=== PATIENT | male | born 1970 | race Caucasian/White ===

== ENCOUNTER 2023-05-16 21:22 | Inpatient (IN) ==
--- NOTE | 2023-05-16 21:58 | Emergency Department Note ---
Impression & Plan SBO (small bowel obstruction), Vomiting, Acute dehydration, Crohn's disease ED Provider Note NAME: PATRICE MCKEE AGE: 52 SEX: M : 1970 ARRIVES VIA: Walk-In INFORMANT: Patient, the patient's significant other ED PROVIDER(S): Andrew Penny DO CHIEF COMPLAINT: Abdominal pain HPI: The patient is a 52-year-old male who presented to the emergency department for an evaluation of abdominal pain. The patient has a history of liver transplant. He had a history of primary sclerosing cholangitis as well as Crohn's disease. The patient started having problems with abdominal pain nausea vomiting which worsened over the course the last 48 hours. He has been trying to take Zofran without relief of his symptoms. The patient denies having any fever. He denies having any chest pain. He did have some leg swelling and was seen at another ER and was diagnosed with superficial thrombophlebitis. The patient denies having any recent trauma. He denies having any rectal bleeding. ROS: See above HPI for pertinent positives & negatives. A total of 10 systems reviewed and were otherwise negative. PAST MEDICAL HISTORY: See Below PAST SURGICAL HISTORY: See Below FAMILY HISTORY: See Below SOCIAL HISTORY: See Below HOME MEDICATIONS: See Below ALLERGIES: See Below VITALS: See Below PHYSICAL EXAMINATION: GENERAL: The patient is awake and alert. He is very anxious and appears to be unwell. EYES: The conjunctivae are clear. The pupils are round and reactive. EARS, NOSE, MOUTH AND THROAT: The nose is without any evidence of any deformity. Mucous membranes are dry. NECK: The neck is nontender and supple. RESPIRATORY: Normal respiratory effort is noted there is no evidence of wheezing rhonchi or rales CARDIOVASCULAR: Regular rate and rhythm noted there no murmurs rubs or gallops normal S1 normal S2. GASTROINTESTINAL: The abdomen is distended. There is diffuse tenderness and guarding in all quadrants. MUSCULOSKELETAL/EXTREMITIES: There is no evidence of gross deformity full range of motion is noted in the hips and shoulders. SKIN: There is no significant pedal edema. Skin was cool and dry. NEUROLOGIC: Patient is awake alert and oriented x3 MEDICAL DECISION MAKING: The patient is a 52-year-old male who presented to the emergency department for an evaluation of abdominal pain. The patient was experiencing abdominal pain nausea and vomiting. His history and physical exam are very worrisome for an underlying intra-abdominal process. For this reason further laboratory and radiographic studies were obtained. I discussed patient's laboratory and radiographic studies with him. He was treated with IV fluids and IV pain medication in the emergency department. He was also treated with IV antiemetics. On reevaluation he was significantly improved. His CT does appear to be consistent with a small bowel obstruction. He was not in need of an NG tube on my final reevaluation. He was found to have signs of significant dehydration. His hemoglobin was very high which I think was secondary to dehydration. I did review the patient's previous LFTs and today his labs appear to be very close to baseline although his bilirubin is slightly elevated compared to his baseline. [facility] to evaluate the patient in the emergency department for further management and disposition. Triage Nursing notes reviewed. Prior medical records reviewed Vital Signs: reviewed and remarkable for tachycardia. Differential diagnosis: Etiologies such as appendicitis, diverticulitis, obstruction, inflammatory bowel disease, renal colic, PUD, biliary pathology, pancreatitis, mesenteric ischemia, aortic pathology, infections, genitourinary, UTI, perforated viscus, as well as others were entertained. ER treatment provided: See below Diagnostics interpreted by me: ECG: none Cardiac Monitoring: An order was placed for continuous cardiac monitoring. The monitor shows a rate of 113 bpm with sinus tachycardia. Laboratory studies: As stated above and show below. Imaging studies: See below. Radiographic imaging was reviewed by myself Consultation(s): I discussed this case with Dr. [facility]illo [facility]. Past [facility]/Surg History Medical History (Updated 05/17/23 @ 01:11 by Andrew Penny DO) Primary sclerosing cholangitis Hodgkins lymphoma Crohn disease Surgical History Liver transplant recipient Social History Smoking Status: Former smoker Preferred Language: Hebrew Feels Safe at Home: Yes Allergies Allergies Allergy/AdvReac Type Severity Reaction Status Date / Time ibuprofen Allergy Intermediate Hives Verified 05/16/23 23:23 Home Meds Home Medications Medication Instructions Recorded Confirmed azathioprine 50 mg tablet 100 mg PO QPM 05/16/23 05/16/23 tacrolimus 1 mg capsule, 2 mg PO Q12H 05/16/23 05/16/23 immediate-release Results & Data (ED) Vital Signs Vital Signs - 24 hr 05/16/23 21:34 05/16/23 21:49 05/16/23 21:49 Temperature 36.7 C Temperature Source Temporal Artery Scan Pulse Rate 122 H 128 H 128 H Pulse Rate [Apical] Pulse Rate from SpO2 Sensor 127 H Pulse Rhythm Pulse Rhythm [Apical] Pulse Strength [Apical] Respiratory Rate 17 47 H Respiratory Effort / Characteristics Respiratory Depth Respiratory Pattern Blood Pressure 141/95 H Blood Pressure [Left Arm] Blood Pressure Mean 110 Blood Pressure Mean [Left Arm] Pulse Oximetry 95 98 Oxygen Delivery Method Room Air Oxygen Flow Rate Sepsis Recent Fever Within 48 Hours No Sepsis New/Unexplained Change in Mental Status No Sepsis Action Taken by Nursing No Action Required 05/16/23 21:50 05/16/23 21:58 05/16/23 22:00 Temperature Temperature Source Pulse Rate 119 H 105 H Pulse Rate [Apical] 117 H Pulse Rate from SpO2 Sensor 119 H 108 H Pulse Rhythm Pulse Rhythm [Apical] Regular Pulse Strength [Apical] Normal Respiratory Rate 50 H 25 H 30 H Respiratory Effort / Characteristics Short of Breath Respiratory Depth Normal Respiratory Pattern Tachypnea Blood Pressure Blood Pressure [Left Arm] 135/79 Blood Pressure Mean Blood Pressure Mean [Left Arm] 97 Pulse Oximetry 97 94 94 Oxygen Delivery Method Room Air Oxygen Flow Rate Sepsis Recent Fever Within 48 Hours Sepsis New/Unexplained Change in Mental Status Sepsis Action Taken by Nursing 05/16/23 22:00 05/16/23 22:02 05/16/23 22:10 Temperature Temperature Source Pulse Rate 117 H 112 H Pulse Rate [Apical] Pulse Rate from SpO2 Sensor 111 H Pulse Rhythm Regular Pulse Rhythm [Apical] Pulse Strength [Apical] Respiratory Rate 36 H 45 H Respiratory Effort / Characteristics Respiratory Depth Respiratory Pattern Blood Pressure 135/79 Blood Pressure [Left Arm] Blood Pressure Mean 87 Blood Pressure Mean [Left Arm] Pulse Oximetry 97 98 Oxygen Delivery Method Room Air Oxygen Flow Rate Sepsis Recent Fever Within 48 Hours Sepsis New/Unexplained Change in Mental Status Sepsis Action Taken by Nursing 05/16/23 22:15 05/16/23 22:15 05/16/23 22:18 Temperature Temperature Source Pulse Rate 104 H 90 Pulse Rate [Apical] Pulse Rate from SpO2 Sensor 102 H Pulse Rhythm Regular Pulse Rhythm [Apical] Pulse Strength [Apical] Respiratory Rate 25 H 16 Respiratory Effort / Characteristics Respiratory Depth Respiratory Pattern Blood Pressure 129/85 Blood Pressure [Left Arm] Blood Pressure Mean 97 Blood Pressure Mean [Left Arm] Pulse Oximetry 86 L 85 L Oxygen Delivery Method Room Air Oxygen Flow Rate Sepsis Recent Fever Within 48 Hours Sepsis New/Unexplained Change in Mental Status Sepsis Action Taken by Nursing 05/16/23 22:20 05/16/23 22:32 05/16/23 22:32 Temperature Temperature Source Pulse Rate 97 H Pulse Rate [Apical] Pulse Rate from SpO2 Sensor 105 H Pulse Rhythm Regular Pulse Rhythm [Apical] Pulse Strength [Apical] Respiratory Rate 18 Respiratory Effort / Characteristics Respiratory Depth Respiratory Pattern Blood Pressure 134/85 Blood Pressure [Left Arm] Blood Pressure Mean 94 Blood Pressure Mean [Left Arm] Pulse Oximetry 98 98 Oxygen Delivery Method Nasal Cannula Oxygen Flow Rate 2 Sepsis Recent Fever Within 48 Hours Sepsis New/Unexplained Change in Mental Status Sepsis Action Taken by Nursing 05/16/23 22:40 05/16/23 22:45 05/16/23 22:45 Temperature Temperature Source Pulse Rate 101 H 98 H Pulse Rate [Apical] Pulse Rate from SpO2 Sensor 101 H 99 H Pulse Rhythm Pulse Rhythm [Apical] Pulse Strength [Apical] Respiratory Rate 19 18 Respiratory Effort / Characteristics Respiratory Depth Respiratory Pattern Blood Pressure 121/79 Blood Pressure [Left Arm] Blood Pressure Mean 88 Blood Pressure Mean [Left Arm] Pulse Oximetry 98 98 Oxygen Delivery Method Oxygen Flow Rate Sepsis Recent Fever Within 48 Hours Sepsis New/Unexplained Change in Mental Status Sepsis Action Taken by Nursing 05/16/23 22:50 05/16/23 23:45 05/17/23 00:00 Temperature Temperature Source Pulse Rate 101 H 103 H 106 H Pulse Rate [Apical] Pulse Rate from SpO2 Sensor 102 H 101 H 104 H Pulse Rhythm Pulse Rhythm [Apical] Pulse Strength [Apical] Respiratory Rate 19 21 Respiratory Effort / Characteristics Respiratory Depth Respiratory Pattern Blood Pressure 137/86 133/82 Blood Pressure [Left Arm] Blood Pressure Mean 103 99 Blood Pressure Mean [Left Arm] Pulse Oximetry 98 96 94 Oxygen Delivery Method Room Air Room Air Oxygen Flow Rate Sepsis Recent Fever Within 48 Hours Sepsis New/Unexplained Change in Mental Status Sepsis Action Taken by Nursing 05/17/23 00:30 Temperature Temperature Source Pulse Rate 113 H Pulse Rate [Apical] Pulse Rate from SpO2 Sensor 113 H Pulse Rhythm Pulse Rhythm [Apical] Pulse Strength [Apical] Respiratory Rate 24 Respiratory Effort / Characteristics Respiratory Depth Respiratory Pattern Blood Pressure 115/78 Blood Pressure [Left Arm] Blood Pressure Mean 90 Blood Pressure Mean [Left Arm] Pulse Oximetry 95 Oxygen Delivery Method Room Air Oxygen Flow Rate Sepsis Recent Fever Within 48 Hours Sepsis New/Unexplained Change in Mental Status Sepsis Action Taken by [facility] Medications Current Medication List: was personally reviewed by me Laboratory Data Attestation: I reviewed the patient's lab results. 05/16/23 21:47 05/16/23 21:47 Lab Results 05/16/23 05/16/23 Range/Units 21:47 22:11 WBC 17.20 H (4.8-10.8) K/ul RBC 5.84 (4.70-6.10) M/uL Hgb 18.7 H (14.0-18.0) g/dl POC Hgb 18.4 H (14.0-18.0) g/dl Hct 55.0 H (42.0-52.0) % POC Hct 54 H (42-52) % MCV 94.2 (80.0-100.0) fL MCH 32.0 (25.0-34.0) pg MCHC 34.0 (32.0-36.0) g/dL RDW Std Deviation 48.4 H (36.4-46.3) fL RDW Coeff of [place] 14.0 (11.5-14.5) % Plt Count 297 (130-400) K/uL MPV 9.3 L (9.4-12.4) fL Immature Gran % (Auto) 0.5 % Neut % (Auto) 87.7 % Lymph % (Auto) 1.6 % [place] % (Auto) 9.9 % Eos % (Auto) 0.0 % Baso % (Auto) 0.3 % Neut # (Auto) 15.09 H (1.40-6.50) K/uL Lymph # (Auto) 0.27 L (1.20-3.40) K/uL [place] # (Auto) 1.71 H (0.11-0.59) K/uL Eos # (Auto) 0.00 (0.00-0.50) K/uL Baso # (Auto) 0.05 (0.00-0.20) K/uL Immature Gran # (Auto) 0.08 (0.01-0.20) K/uL PT 11.9 (9.0-12.0) Seconds INR 1.1 (0.9-1.1) APTT 23 (21-31) Seconds PTT Ratio 0.8 POC Sodium 139 (135-144) mmol/L Sodium 139 (136-145) mmol/L POC Potassium 3.9 (3.3-5.0) mmol/L Potassium 3.9 (3.5-5.1) mmol/L POC Chloride 105 (101-112) mmol/L Chloride 103 (98-107) mmol/L Carbon Dioxide 20 L (21-32) mmol/L POC Total CO2 24 (24-31) mmol/L Anion Gap 16 H (3-11) POC Anion Gap 16.0 (16-25) mmol/L POC BUN 30 H (7-18) mg/dl BUN 28 H (6-23) mg/dl Creatinine 0.81 (0.6-1.4) mg/dl POC Creatinine 0.8 (0.6-1.3) mg/dl Est Cr Clr Drug Dosing 100.9 ml/min Est GFR ( Amer) 119.3 ml/min Est GFR (Non-Af Amer) 102.9 ml/min BUN/Creatinine Ratio 34.6 H (10-20) Glucose 183 H (70-99(Fasting)) mg/dl POC Glucose (other) 181 H (70-99) mg/dl Calcium 9.6 (8.6-10.3) mg/dl POC Ioniz Calcium Mikki 1.13 (1.12-1.32) mmol/l Total Bilirubin 2.2 H (0.2-1.0) mg/dl Direct Bilirubin 0.5 H (0-0.2) mg/dl AST 41 H (13-39) U/L ALT 53 H (7-52) U/L Alkaline Phosphatase 273 H (34-104) U/L Total Protein 7.5 (6.0-8.3) gm/dl Albumin 4.4 (3.4-5.0) gm/dl Globulin 3.1 (2.5-4.0) gm/dl Albumin/Globulin Ratio 1.4 (0.9-2) Lipase 13 (11-82) U/L Administered Medications Sodium Chloride (Nss) 1,000 mls @ 999 mls/hr IV .Q1H1M ONE Stop: 05/17/23 01:28 Last Admin: 05/17/23 00:33 Dose: 999 mls/hr Documented By: Morphine Sulfate (Morphine Sulfate 4 Mg/Ml 1 Ml Carp\Vial) 4 mg IV Q15M PRN PRN Reason: Pain Stop: 05/30/23 21:54 Last Admin: 05/16/23 23:42 Dose: 4 mg Documented By: Admin: 05/16/23 22:06 Dose: 4 mg Documented By: JAVIER Discontinued Medications Sodium Chloride (Nss) 1,000 mls @ 999 mls/hr IV .Q1H1M STA Stop: 05/16/23 22:55 Last Infusion: 05/16/23 23:11 Dose: Infused Documented By: Admin: 05/16/23 22:06 Dose: 999 mls/hr Documented By: JAVIER Ioversol (Optiray 320 100ml) 91 ml IV ONCE ONE Stop: 05/16/23 22:26 Last Admin: 05/16/23 22:26 Dose: 91 ml Documented By: CHELSI Ondansetron HCl (Ondansetron Inj 2 Mg/Ml 2 Ml Vial) 4 mg IV NOW STA Stop: 05/16/23 21:56 Last Admin: 05/16/23 22:06 Dose: 4 mg Documented By: JAVIER Imaging Data Attestation: I personally reviewed and interpreted this imaging study as follows: My Impression: CT of the abdomen and pelvis was obtained in the emergency department. My interpretation is dilated loops of small bowel, abnormality was noted to the texture of the liver, final report below. Radiologist's Impression: Abdomen/Pelvis CT 05/16/23 21:56 Exam(s): CT ABDOMEN + PELVIS With Contrast IV Amt: 91ML EXAM: CT Abdomen and Pelvis With Intravenous Contrast CLINICAL HISTORY: Reason for exam: pain. TECHNIQUE: Axial computed tomography images of the abdomen and pelvis with intravenous contrast. CTDI is 12.17 mGy and DLP is 674.61 mGy-cm. Automated exposure control was utilized for the study. A dose lowering technique was utilized adhering to the principles of ALARA. CONTRAST: Patient received 91ML of IV contrast COMPARISON: No relevant prior studies available. FINDINGS: Lung bases: Unremarkable. No mass. No consolidation. ABDOMEN: Liver: Multiple hepatic metastasis. Correlate for primary malignancy. Gallbladder and bile ducts: Cholecystectomy. No ductal dilation. Pancreas: Unremarkable. No mass. No ductal dilation. Spleen: Unremarkable. No splenomegaly. Adrenals: Unremarkable. No mass. Kidneys and ureters: Unremarkable. No hydronephrosis or delayed nephrogram. Stomach and bowel: Dilated small bowel measuring up to 3.2 cm, consistent with small bowel obstruction. Severe wall thickening of the terminal ileum, extending to the cecum. This is likely the point of obstruction. Mild wall thickening of the descending colon, correlate for colitis. PELVIS: Appendix: No findings to suggest acute appendicitis. Bladder: Unremarkable. No mass. Reproductive: Hysterectomy. ABDOMEN and PELVIS: Intraperitoneal space: Unremarkable. No free air. No significant fluid collection. Bones/joints: No acute fracture. No dislocation. Soft tissues: Unremarkable. Vasculature: Unremarkable. No abdominal aortic aneurysm. Lymph nodes: Unremarkable. No enlarged lymph nodes. IMPRESSION: 1. Multiple hepatic metastasis. Correlate for primary malignancy. 2. Dilated small bowel measuring up to 3.2 cm, consistent with small bowel obstruction. Severe wall thickening of the terminal ileum, extending to the cecum. This is likely the point of obstruction. Surgical evaluation recommended. Underlying colonic mass cannot be excluded. 3. Mild wall thickening of the descending colon, correlate for colitis. 4. Cholecystectomy. Electronically signed by: Janes Ramos MD 05/16/23 23:49 PM Discharge Plan Visit Data Chief Complaint: GI Assessment Stated Complaint: ABDOMINAL PAIN, VOMITING, DEHYDRATION ED Provider: Andrew Penny Discharge Problem: SBO (small bowel obstruction), Vomiting, Acute dehydration, Crohn's disease Patient Disposition: Being Evaluated by Hospitalist Forms Stand Alone Forms: [facility] Prescriptions Prescriptions: No Action azathioprine 50 mg Tablet 100 mg PO QPM tacrolimus 1 mg Capsule 2 mg PO Q12H Referrals Referrals: PCP,NO [Primary Care Provider] - Discharge Problem: Vomiting Qualifiers: Vomiting type: unspecified Nausea presence: with nausea Qualified Code(s): R 11.2 - Nausea with vomiting, unspecified Crohn's disease Qualifiers: Gastrointestinal tract location: unspecified location Digestive disease complication type: unspecified complication Qualified Code(s): K50.919 - Crohn's disease, unspecified, with unspecified complications
[2023-05-16] MEDS: ONDANSETRON INJ 2 MG/ML 2 ML VIAL IV STA (22:06)
[2023-05-16] MEDS: MoRPHine SULFATE 4 MG/ML 1 ML CARP\\VIAL IV PRN (22:06)
[2023-05-16] MEDS: SODIUM CHLORIDE 0.9% 1,000 ML IV STA (22:06)
[2023-05-16 22:12] LABS: Basophils # (auto) 0.05 K/uL (0.00-0.20); Basophils % (auto) 0.3 %; Hemoglobin 18.7 g/dl (14.0-18.0); Immature Granulocytes # (auto) 0.08 K/uL (0.01-0.20); Immature Granulocytes % (auto) 0.5 %; Lymphocytes # (auto) 0.27 K/uL (1.20-3.40); Lymphocytes % (auto) 1.6 %; Mean Corpuscular Volume 94.2 fL (80.0-100.0); Mean Platelet Volume 9.3 fL (9.4-12.4); Monocytes # (auto) 1.71 K/uL (0.11-0.59); Monocytes % (auto) 9.9 %; Neutrophils # (auto) 15.09 K/uL (1.40-6.50); Neutrophils % (auto) 87.7 %; Platelet Count 297 K/uL (130-400); RDW Standard Deviation 48.4 fL (36.4-46.3); Red Blood Count 5.84 M/uL (4.70-6.10)
[2023-05-16 22:25] LABS: iSTAT Creatinine 0.8 mg/dl (0.6-1.3); iSTAT Hemoglobin 18.4 g/dl (14.0-18.0); iSTAT Ionized Calcium 1.13 mmol/l (1.12-1.32); iSTAT Potassium 3.9 mmol/L (3.3-5.0)
[2023-05-16] MEDS: OPTIRAY 320 100ml IV ONE (22:26)
[2023-05-16 22:29] LABS: Albumin Globulin Ratio 1.4 (0.9-2); Albumin Level 4.4 gm/dl (3.4-5.0); BUN Creatinine Ratio 34.6 (10-20); Bilirubin Direct 0.5 mg/dl (0-0.2); Bilirubin,Total 2.2 mg/dl (0.2-1.0); Calcium 9.6 mg/dl (8.6-10.3); Creatinine Clr Calc Pharmacy 100.9 ml/min; Est GFR (African American) 119.3 ml/min; Est GFR (Non-African American) 102.9 ml/min; Globulin 3.1 gm/dl (2.5-4.0); Potassium 3.9 mmol/L (3.5-5.1); Total Protein 7.5 gm/dl (6.0-8.3)
[2023-05-16 22:45] LABS: INR 1.1 (0.9-1.1); Partial Thromboplastin Ratio 0.8; Partial Thromboplastin Time 23 Seconds (21-31); Prothrombin Time 11.9 Seconds (9.0-12.0)
--- NOTE | 2023-05-16 23:50 | CT Scan Report ---
Exam(s): CT ABDOMEN + PELVIS With Contrast IV Amt: 91ML EXAM: CT Abdomen and Pelvis With Intravenous Contrast CLINICAL HISTORY: Reason for exam: pain. TECHNIQUE: Axial computed tomography images of the abdomen and pelvis with intravenous contrast. CTDI is 12.17 mGy and DLP is 674.61 mGy-cm. Automated exposure control was utilized for the study. A dose lowering technique was utilized adhering to the principles of ALARA. CONTRAST: Patient received 91ML of IV contrast COMPARISON: No relevant prior studies available. FINDINGS: Lung bases: Unremarkable. No mass. No consolidation. ABDOMEN: Liver: Multiple hepatic metastasis. Correlate for primary malignancy. Gallbladder and bile ducts: Cholecystectomy. No ductal dilation. Pancreas: Unremarkable. No mass. No ductal dilation. Spleen: Unremarkable. No splenomegaly. Adrenals: Unremarkable. No mass. Kidneys and ureters: Unremarkable. No hydronephrosis or delayed nephrogram. Stomach and bowel: Dilated small bowel measuring up to 3.2 cm, consistent with small bowel obstruction. Severe wall thickening of the terminal ileum, extending to the cecum. This is likely the point of obstruction. Mild wall thickening of the descending colon, correlate for colitis. PELVIS: Appendix: No findings to suggest acute appendicitis. Bladder: Unremarkable. No mass. Reproductive: Hysterectomy. ABDOMEN and PELVIS: Intraperitoneal space: Unremarkable. No free air. No significant fluid collection. Bones/joints: No acute fracture. No dislocation. Soft tissues: Unremarkable. Vasculature: Unremarkable. No abdominal aortic aneurysm. Lymph nodes: Unremarkable. No enlarged lymph nodes. IMPRESSION: 1. Multiple hepatic metastasis. Correlate for primary malignancy. 2. Dilated small bowel measuring up to 3.2 cm, consistent with small bowel obstruction. Severe wall thickening of the terminal ileum, extending to the cecum. This is likely the point of obstruction. Surgical evaluation recommended. Underlying colonic mass cannot be excluded. 3. Mild wall thickening of the descending colon, correlate for colitis. 4. Cholecystectomy. Electronically signed by: Janes Ramos MD 05/16/23 23:49 PM
[2023-05-17] MEDS: SODIUM CHLORIDE 0.9% 1,000 ML IV ONE (00:33)
--- NOTE | 2023-05-17 01:56 | History & Physical Report ---
Date of Service May 17, 2023 Assessment & Plan (1) SBO (small bowel obstruction): (2) Vomiting: (3) Ulcerative colitis: (4) Acute dehydration: (5) Superficial thrombophlebitis of both legs: (6) Liver transplant recipient: Plan Small bowel obstruction/PSC/UC/liver transplant status/question of metastatic liver disease- CT scan suggestive of small bowel obstruction NPO Discussed possible need for NG tube No history of SBO Status post 2 L normal saline bolus NSS + KCl 20 mill equivalents at 100 mL/h Patient did take 1 oxycodone pill since he had discomfort, but no other narcotic use Pantoprazole 40 mg IV daily Consult gastroenterology, holding off on steroids for now Zosyn 4.5 g IV every 8 hours Liver transplant status/abnormal LFTs/history of Hodgkin's/question liver mets- Continue azathioprine and tacrolimus tomorrow, Wednesday morning, but has not had dosages since Wednesday due to nausea and vomiting CT with concerns regarding possible liver metastatic disease, which would be a new finding per his significant other Significant other tells me that he did have serial colonoscopies, which initially showed low-grade dysplasia but the most recent one showed high-grade dysplasia Patient has been resistant to a colectomy, which had been recommended at the [facility] Will consult heme-onc for their opinion Will consult gastroenterology for their opinion History of DVT status post liver transplant in 2016/history of PE in 2019 with COVID-19/recent diagnosis of superficial thrombophlebitis bilateral lower extremities Reports he was on anticoagulation for 6 months, but does not know what it was He was told to take ibuprofen by ED and DC, however, he does not like to take it due to his underlying medical conditions No history of hypercoagulable workup Heparin 5000 subcu every 8 hours Will have heme-onc consult to help determine necessity for hyper coag workup Potential underlying cancer may also be a factor and his recent development of thrombophlebitis, and associated with lengthy car travel History of Present Illness Chief Complaint: The patient presents to the emergency department due to nausea and vomiting worsening over the past 2 days Primary Care Provider: NO PCP The patient presents to the emergency department with a past medical history including ulcerative colitis, liver transplant status on immunosuppressive's, history of DVT and PE, high-grade dysplasia of colon, primary sclerosing cholangitis, Hodgkin's lymphoma, history of PE with COVID-19, history of DVT post liver transplant, recent diagnosis of superficial thrombophlebitis in the left saphenous vein and right calf. Patient lives in [place], where he recently traveled to [place] where his significant other if and keep children live. He and his significant other had gone to [facility] recently, and he developed painful legs, and nausea and vomiting. He went to a emergency department in [place], and was found to have superficial thrombophlebitis in left saphenous and right calf veins. He was told to take Motrin, which he is not allowed to due to his medical conditions. He also had developed nausea and vomiting, which worsened over the next 2 days, and caused him to present to the ED at [facility] for assessment. Allergies Allergy/AdvReac Type Severity Reaction Status Date / Time ibuprofen Allergy Intermediate Hives Verified 05/16/23 23:23 Home Medications Medication Instructions Recorded Confirmed Type azathioprine 50 mg tablet 100 mg PO QPM 05/16/23 05/16/23 History tacrolimus 1 mg capsule, 2 mg PO Q12H 05/16/23 05/16/23 History immediate-release Past Med/Surg History Medical History (Updated 05/17/23 @ 03:08 by Charan Stein MD) Superficial thrombophlebitis of both legs History of pulmonary embolism History of DVT (deep vein thrombosis) Ulcerative colitis Primary sclerosing cholangitis Hodgkins lymphoma Surgical History (Updated 05/17/23 @ 03:17 by Charan Stein MD) Liver transplant recipient Social History Smoking Status: Former smoker Preferred Language: Korean Feels Safe at Home: Yes Review of Systems Review of Systems: The patient denies chest pain, palpitations, cough, lower extremity swelling, sore throat, fevers, chills, sweats, blood in urine or stool, dysuria, urinary frequency or urgency, lightheadedness, dizziness, headache, memory loss, loss of consciousness, rash, abnormal bruising or bleeding, imbalance, focal or generalized weakness, numbness or tingling in arms or legs, generalized arthralgias or myalgias, back or neck pain, or night sweats. The review of systems is otherwise negative other than for that already noted above, and at least 10 systems have been reviewed. Physical Exam Physical Exam: The patient is awake, alert and oriented 3, well developed and well nourished, normocephalic and atraumatic, lying in bed and in no acute distress. HEENT--PERRL, EOMI, mucous membranes and oropharynx mildly dry. Neck--supple. No JVD. No bruits. Thyroid normal, trachea midline, no adenopathy. Heart--normal S1 and S2. No murmurs, rubs or gallops. Lungs--clear bilaterally, no respiratory distress, no accessory muscle use. Abdomen--decreased bowel sounds. Mildly distended. Nontender Extremities--no cyanosis or clubbing. No edema. Dermatologic--normal skin turgor, normal color, no abnormal lymph nodes, no rash. Neurologic--cranial nerves II through XII grossly intact. Rheumatologic--normal range of motion. Psychiatric--normal affect. Results & Data Results & Data Vital Signs (Past 12 Hours) Vital Signs Temp Pulse Pulse Resp BP BP Pulse Ox 05/17/23 00:30 113 H 24 115/78 95 05/17/23 00:00 106 H 133/82 94 05/16/23 23:45 103 H 21 137/86 96 05/16/23 22:50 101 H 19 98 05/16/23 22:45 121/79 05/16/23 22:45 98 H 18 98 05/16/23 22:40 101 H 19 98 05/16/23 22:32 134/85 05/16/23 22:32 98 05/16/23 22:20 97 H 18 98 05/16/23 22:18 90 16 85 L 05/16/23 22:15 104 H 25 H 86 L 05/16/23 22:15 129/85 05/16/23 22:10 112 H 45 H 98 05/16/23 22:02 117 H 36 H 97 05/16/23 22:00 135/79 05/16/23 22:00 105 H 30 H 94 05/16/23 21:58 117 H 25 H 135/79 94 05/16/23 21:50 119 H 50 H 97 05/16/23 21:49 128 H 47 H 98 05/16/23 21:49 128 H 05/16/23 21:34 36.7 C 122 H 17 141/95 H 95 O2 Del Method O2 Flow Rate 05/17/23 00:30 Room Air 05/17/23 00:00 Room Air 05/16/23 23:45 Room Air 05/16/23 22:50 05/16/23 22:45 05/16/23 22:45 05/16/23 22:40 05/16/23 22:32 05/16/23 22:32 05/16/23 22:20 Nasal Cannula 2 05/16/23 22:18 Room Air 05/16/23 22:15 05/16/23 22:15 05/16/23 22:10 05/16/23 22:02 Room Air 05/16/23 22:00 05/16/23 22:00 05/16/23 21:58 Room Air 05/16/23 21:50 05/16/23 21:49 05/16/23 21:49 05/16/23 21:34 Room Air Laboratory Results Laboratory Results WBC 17.20 K/ul (4.8-10.8) H 05/16/23 21:47 RBC 5.84 M/uL (4.70-6.10) 05/16/23 21:47 Hgb 18.7 g/dl (14.0-18.0) H 05/16/23 21:47 POC Hgb 18.4 g/dl (14.0-18.0) H 05/16/23 22:11 Hct 55.0 % (42.0-52.0) H 05/16/23 21:47 POC Hct 54 % (42-52) H 05/16/23 22:11 MCV 94.2 fL (80.0-100.0) 05/16/23 21:47 MCH 32.0 pg (25.0-34.0) 05/16/23 21:47 MCHC 34.0 g/dL (32.0-36.0) 05/16/23 21:47 RDW Std Deviation 48.4 fL (36.4-46.3) H 05/16/23 21:47 RDW Coeff of Luba 14.0 % (11.5-14.5) 05/16/23 21:47 Plt Count 297 K/uL (130-400) 05/16/23 21:47 MPV 9.3 fL (9.4-12.4) L 05/16/23 21:47 Immature Gran % (Auto) 0.5 % 05/16/23 21:47 Neut % (Auto) 87.7 % 05/16/23 21:47 Lymph % (Auto) 1.6 % 05/16/23 21:47 Mason % (Auto) 9.9 % 05/16/23 21:47 Eos % (Auto) 0.0 % 05/16/23 21:47 Baso % (Auto) 0.3 % 05/16/23 21:47 Neut # (Auto) 15.09 K/uL (1.40-6.50) H 05/16/23 21:47 Lymph # (Auto) 0.27 K/uL (1.20-3.40) L 05/16/23 21:47 Mason # (Auto) 1.71 K/uL (0.11-0.59) H 05/16/23 21:47 Eos # (Auto) 0.00 K/uL (0.00-0.50) 05/16/23 21:47 Baso # (Auto) 0.05 K/uL (0.00-0.20) 05/16/23 21:47 Immature Gran # (Auto) 0.08 K/uL (0.01-0.20) 05/16/23 21:47 PT 11.9 Seconds (9.0-12.0) 05/16/23 21:47 INR 1.1 (0.9-1.1) 05/16/23 21:47 APTT 23 Seconds (21-31) 05/16/23 21:47 PTT Ratio 0.8 05/16/23 21:47 POC Sodium 139 mmol/L (135-144) 05/16/23 22:11 Sodium 139 mmol/L (136-145) 05/16/23 21:47 POC Potassium 3.9 mmol/L (3.3-5.0) 05/16/23 22:11 Potassium 3.9 mmol/L (3.5-5.1) 05/16/23 21:47 POC Chloride 105 mmol/L (101-112) 05/16/23 22:11 Chloride 103 mmol/L (98-107) 05/16/23 21:47 Carbon Dioxide 20 mmol/L (21-32) L 05/16/23 21:47 POC Total CO2 24 mmol/L (24-31) 05/16/23 22:11 Anion Gap 16 (3-11) H 05/16/23 21:47 POC Anion Gap 16.0 mmol/L (16-25) 05/16/23 22:11 POC BUN 30 mg/dl (7-18) H 05/16/23 22:11 BUN 28 mg/dl (6-23) H 05/16/23 21:47 Creatinine 0.81 mg/dl (0.6-1.4) 05/16/23 21:47 POC Creatinine 0.8 mg/dl (0.6-1.3) 05/16/23 22:11 Est Cr Clr Drug Dosing 100.9 ml/min 05/16/23 21:47 Est GFR ( Amer) 119.3 ml/min 05/16/23 21:47 Est GFR (Non-Af Amer) 102.9 ml/min 05/16/23 21:47 BUN/Creatinine Ratio 34.6 (10-20) H 05/16/23 21:47 Glucose 183 mg/dl (70-99(Fasting)) H 05/16/23 21:47 POC Glucose (other) 181 mg/dl (70-99) H 05/16/23 22:11 Calcium 9.6 mg/dl (8.6-10.3) 05/16/23 21:47 POC Ioniz Calcium Mikki 1.13 mmol/l (1.12-1.32) 05/16/23 22:11 Total Bilirubin 2.2 mg/dl (0.2-1.0) H 05/16/23 21:47 Direct Bilirubin 0.5 mg/dl (0-0.2) H 05/16/23 21:47 AST 41 U/L (13-39) H 05/16/23 21:47 ALT 53 U/L (7-52) H 05/16/23 21:47 Alkaline Phosphatase 273 U/L (34-104) H 05/16/23 21:47 Total Protein 7.5 gm/dl (6.0-8.3) 05/16/23 21:47 Albumin 4.4 gm/dl (3.4-5.0) 05/16/23 21:47 Globulin 3.1 gm/dl (2.5-4.0) 05/16/23 21:47 Albumin/Globulin Ratio 1.4 (0.9-2) 05/16/23 21:47 Lipase 13 U/L (11-82) 05/16/23 21:47 Impressions Abdomen/Pelvis CT 05/16/23 21:56 Exam(s): CT ABDOMEN + PELVIS With Contrast IV Amt: 91ML EXAM: CT Abdomen and Pelvis With Intravenous Contrast CLINICAL HISTORY: Reason for exam: pain. TECHNIQUE: Axial computed tomography images of the abdomen and pelvis with intravenous contrast. CTDI is 12.17 mGy and DLP is 674.61 mGy-cm. Automated exposure control was utilized for the study. A dose lowering technique was utilized adhering to the principles of ALARA. CONTRAST: Patient received 91ML of IV contrast COMPARISON: No relevant prior studies available. FINDINGS: Lung bases: Unremarkable. No mass. No consolidation. ABDOMEN: Liver: Multiple hepatic metastasis. Correlate for primary malignancy. Gallbladder and bile ducts: Cholecystectomy. No ductal dilation. Pancreas: Unremarkable. No mass. No ductal dilation. Spleen: Unremarkable. No splenomegaly. Adrenals: Unremarkable. No mass. Kidneys and ureters: Unremarkable. No hydronephrosis or delayed nephrogram. Stomach and bowel: Dilated small bowel measuring up to 3.2 cm, consistent with small bowel obstruction. Severe wall thickening of the terminal ileum, extending to the cecum. This is likely the point of obstruction. Mild wall thickening of the descending colon, correlate for colitis. PELVIS: Appendix: No findings to suggest acute appendicitis. Bladder: Unremarkable. No mass. Reproductive: Hysterectomy. ABDOMEN and PELVIS: Intraperitoneal space: Unremarkable. No free air. No significant fluid collection. Bones/joints: No acute fracture. No dislocation. Soft tissues: Unremarkable. Vasculature: Unremarkable. No abdominal aortic aneurysm. Lymph nodes: Unremarkable. No enlarged lymph nodes. IMPRESSION: 1. Multiple hepatic metastasis. Correlate for primary malignancy. 2. Dilated small bowel measuring up to 3.2 cm, consistent with small bowel obstruction. Severe wall thickening of the terminal ileum, extending to the cecum. This is likely the point of obstruction. Surgical evaluation recommended. Underlying colonic mass cannot be excluded. 3. Mild wall thickening of the descending colon, correlate for colitis. 4. Cholecystectomy. Electronically signed by: Janes Ramos MD 05/16/23 23:49 PM Code Status & VTE Plan Code Status Full code VTE Prophylaxis Plan VTE Prophylaxis will be ordered: Yes PG Care Time/CCT Total # of Minutes Spent Total Time Spent with Patient: Total time spent is greater than 50% in coordination of care (as documented) at patient's floor/unit and/or counseling patient: Coding Level of Care Code 42967 INT INP/OBS CARE 375MIN Diagnoses SBO (small bowel obstruction) K56.609 Vomiting R11.2 Nausea presence: with nausea Vomiting type: unspecified Ulcerative colitis K51.90 Acute dehydration E86.0 Superficial thrombophlebitis of both legs I80.03 Liver transplant recipient Z94.4 (2) Vomiting Nausea presence: with nausea Vomiting type: unspecified Qualified Code(s): R11.2 - Nausea with vomiting, unspecified
[2023-05-17] MEDS: PANTOprazole 40 MG in SYRINGE 0 ML IV STA (02:29)
[2023-05-17] MEDS: NSS + 20MEQ KCL 20 MEQ/1,000 ML BAG IV SCH (02:32)
[2023-05-17] MEDS: PIPERACILLIN/TAZOBACTAM 4.5 GM/100 ML BAG IV STA (02:36)
[2023-05-17] MEDS: ONDANSETRON INJ 2 MG/ML 2 ML VIAL IV PRN (03:23)
[2023-05-17 03:55] LABS: Appearance Urine Clear (Clear); Bacteria Urine Automated Negative (Negative); Bilirubin Urine Negative (Negative); Blood Urine Negative (Negative); Color Urine Dark Yellow; Epithelial Cell Urine Auto 0-5 /lpf (0-5); Glucose Urine UA Negative (Negative); Ketones Urine 1+ (Negative); Leukocyte Esterase Urine Negative (Negative); Nitrite Urine Negative (Negative); Protein Urine Trace (Negative); Specific Gravity Urine > 1.045 (1.000-1.030); Urobilinogen Urine Negative (Negative)
[2023-05-17] MEDS: TACROLIMUS 1 MG CAP PO SCH (04:11)
[2023-05-17] MEDS: HEPARIN SOD 5,000 UNIT/0.5 ML VIAL SQ SCH (05:32)
[2023-05-17] MEDS ORDERED: HYDROmorphone INJ 0.5 MG/0.5 ML SYR IV PRN (05:41)
[2023-05-17] MEDS: MoRPHine SULFATE 4 MG/ML 1 ML CARP\\VIAL IV PRN (06:15)
--- NOTE | 2023-05-17 07:19 | Hospitalist Progress Note ---
Date of Service May 17, 2023 Assessment & Plan (1) SBO (small bowel obstruction): (2) Ulcerative colitis: (3) Superficial thrombophlebitis of both legs: (4) Liver transplant recipient: (5) Primary sclerosing cholangitis: (6) History of pulmonary embolism: (7) History of DVT (deep vein thrombosis): Plan Pt is a 52 yo male with a past medical history of ulcerative colitis, liver transplant status on immunosuppressive's, history of DVT and PE, high-grade dysplasia of colon, primary sclerosing cholangitis, Hodgkin's lymphoma, history of PE with COVID-19, history of DVT post liver transplant, recent diagnosis of superficial thrombophlebitis in the left saphenous vein and right calf who presents to the hospital on 05/15 for worsening nausea/vomiting over the last 2 days found to have an SBO. #Small bowel obstruction - CT scan suggestive of small bowel obstruction, no prior hx of SBO - NPO, NSS + KCl 20 mill equivalents at 100 mL/h - Discussed possible need for NG tube - continue Pantoprazole 40 mg IV daily - maybe due to underlying IBD vs mass - GI consulted; pending #Hx DVT s/p liver transplant in 2015 #Hx PE with COVID19 in 2019 #Current hx of superficial thrombophlebitis in b/l lower extremities, recent travel - previously on 6 mo of some sort of anticoagulant, no hypercoag workup done in the past - continue heparin - does have underlying cancer and recent travel as possible reasons for clots - will do b/l venous US; b/l DVT R>L - hematology consulted; pending #Fever in immunosuppressed pt - CT shows potential colitis process - on tacrolimus and azathioprine - pending GI recs - continue Zosyn 4.5 g IV every 8 hours, - blood cx; pending #Hx ulcerative colitis - pending GI recs #Liver metastases - noted on CT on admission - unclear where primary lesion is - would benefit from biopsy, but as pt is from [place] will defer this for now #S/p Liver transplant in 2015 #Primary sclerosing cholangitis - CT on admission shows possible liver mets, has hx of high grade dysplasia on previous colonoscopy - Patient has been resistant to a colectomy, which had been recommended at the [facility] - continue home azathioprine and tacrolimus - mild transaminitis noted - consult GI; pending DVT ppx; heparin in case of need for surg intervention IVF: LR 125 mL/hr since NPO Admission and Anticipated Discharge Date Admission Date: May 17, 2023 Supervising Physician Co-Signing Physician Notes I personally examined the patient and verified all burnett points of history and exam, discussed case, and agree with decision making with Dr Reveles no real changes. discussing follow up and if he will continue to have bulk of care in [place] or if he will want to set up a medical team locally - life is in both places more or less the same right now, but he was working towards moving most of life this direction vitals noted nad heent nc at mmm breathing unlabored no accessory muscles good effort skin no rashes no pallor or icterus neuro no focal deficits SBO - concern inflammatory or malignant. with fevers - continue zosyn. hold on steroids given not totally clear the obstruction is inflammatory mian w immunosuppression. colo would yield insight, understandably best done with his main team if f/u is to be back in [place]. similarly agree w liver bx but with no overt urgency - also likely best done where he will follow for continuity. otherwise as above Subjective Pt is a 52 yo male with a past medical history of ulcerative colitis, liver transplant status on immunosuppressive's, history of DVT and PE, high-grade dysplasia of colon, primary sclerosing cholangitis, Hodgkin's lymphoma, history of PE with COVID-19, history of DVT post liver transplant, recent diagnosis of superficial thrombophlebitis in the left saphenous vein and right calf who presents to the hospital on 05/15 for worsening nausea/vomiting over the last 2 days found to have an SBO. Today, pt is minimally conversational. He is awake and oriented but only responds to some questions and appears somewhat restless. Denies chest pain or SOB. Does note that he was having nausea and vomiting the last few days but does not elaborate anymore on his admitting history. Seen later this morning with his significant other who states they went to the ER in [place] because he had been having pain in both of his legs and with his hx of DVT/PE they were concerned given a lot of recent travel. He had nausea and vomiting starting after that which progressed and he had issues keeping anything down. 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 Review of Systems Review of Systems: Per HPI. Physical Exam Physical Exam: General:Alert and oriented, no acute distress but uncomfortable appearing HEENT: Normocephalic, moist oral mucosa, Cardio: Regular rate and rhythm, no murmur, Resp:Lungs clear to auscultation b/l, no wheezes or rhonchi, GI: Tense and distended, no bowel sounds appreciated Skin: Warm, pink, dry, Results & Data Results & Data Vital Signs (Past 12 Hours) Vital Signs Temp Pulse Pulse Resp BP BP Pulse Ox 05/17/23 07:18 37.9 C H 70 18 124/87 92 05/17/23 04:24 108 H 05/17/23 03:29 05/17/23 03:29 37.5 C 125 H 20 122/84 91 05/17/23 03:26 117 H 05/17/23 02:51 05/17/23 02:30 105 H 22 122/86 93 05/17/23 02:13 104 H 05/17/23 02:00 110 H 140/90 96 05/17/23 01:00 108 H 22 106/78 95 05/17/23 00:30 113 H 24 115/78 95 05/17/23 00:00 106 H 133/82 94 05/16/23 23:45 103 H 21 137/86 96 05/16/23 22:50 101 H 19 98 05/16/23 22:45 121/79 05/16/23 22:45 98 H 18 98 05/16/23 22:40 101 H 19 98 05/16/23 22:32 134/85 05/16/23 22:32 98 05/16/23 22:20 97 H 18 98 05/16/23 22:18 90 16 85 L 05/16/23 22:15 104 H 25 H 86 L 05/16/23 22:15 129/85 05/16/23 22:10 112 H 45 H 98 05/16/23 22:02 117 H 36 H 97 05/16/23 22:00 135/79 05/16/23 22:00 105 H 30 H 94 05/16/23 21:58 117 H 25 H 135/79 94 05/16/23 21:50 119 H 50 H 97 05/16/23 21:49 128 H 47 H 98 05/16/23 21:49 128 H 05/16/23 21:34 36.7 C 122 H 17 141/95 H 95 O2 Del Method O2 Flow Rate 05/17/23 07:18 Room Air 05/17/23 04:24 05/17/23 03:29 Room Air 05/17/23 03:29 Room Air 05/17/23 03:26 05/17/23 02:51 Room Air 05/17/23 02:30 Room Air 05/17/23 02:13 05/17/23 02:00 Room Air 05/17/23 01:00 Room Air 05/17/23 00:30 Room Air 05/17/23 00:00 Room Air 05/16/23 23:45 Room Air 05/16/23 22:50 05/16/23 22:45 05/16/23 22:45 05/16/23 22:40 05/16/23 22:32 05/16/23 22:32 05/16/23 22:20 Nasal Cannula 2 05/16/23 22:18 Room Air 05/16/23 22:15 05/16/23 22:15 05/16/23 22:10 05/16/23 22:02 Room Air 05/16/23 22:00 05/16/23 22:00 05/16/23 21:58 Room Air 05/16/23 21:50 05/16/23 21:49 05/16/23 21:49 05/16/23 21:34 Room Air Resident Activity Tracking Resident Involvement: Resident Care Provided Care Provided: Adult Hospital Medicine
[2023-05-17 07:22] LABS: Albumin Globulin Ratio 1.4 (0.9-2); Albumin Level 3.6 gm/dl (3.4-5.0); BUN Creatinine Ratio 36.8 (10-20); Bilirubin,Total 2.3 mg/dl (0.2-1.0); Calcium 8.3 mg/dl (8.6-10.3); Creatinine Clr Calc Pharmacy 107.5 ml/min; Est GFR (African American) 122.4 ml/min; Est GFR (Non-African American) 105.6 ml/min; Globulin 2.5 gm/dl (2.5-4.0); Potassium 4.1 mmol/L (3.5-5.1); Total Protein 6.1 gm/dl (6.0-8.3)
[2023-05-17] MEDS: PROMETHAZINE HCL 12.5 MG in SODIUM CHLORIDE 0.9% 50 ML IV PRN (07:48)
[2023-05-17 07:54] LABS: Hematocrit (blood only) 52.4 % (42.0-52.0); Hemoglobin 17.5 g/dl (14.0-18.0); Mean Corpuscular Hemoglobin 32.1 pg (25.0-34.0); Mean Corpuscular Hgb Conc 33.4 g/dL (32.0-36.0); Mean Platelet Volume 9.5 fL (9.4-12.4); Platelet Count 233 K/uL (130-400); RDW Coefficient of Variation 14.2 % (11.5-14.5); RDW Standard Deviation 49.9 fL (36.4-46.3); Red Blood Count 5.46 M/uL (4.70-6.10); White Blood Count 6.95 K/ul (4.8-10.8)
[2023-05-17 07:55] LABS: Basophils # (auto) 0.01 K/uL (0.00-0.20); Basophils % (auto) 0.1 %; Immature Granulocytes # (auto) 0.01 K/uL (0.01-0.20); Immature Granulocytes % (auto) 0.1 %; Lymphocytes # (auto) 0.12 K/uL (1.20-3.40); Lymphocytes % (auto) 1.7 %; Monocytes % (auto) 17.3 %; Neutrophils # (auto) 5.61 K/uL (1.40-6.50); Neutrophils % (auto) 80.8 %
[2023-05-17] MEDS: PIPERACILLIN/TAZOBACTAM 4.5 GM in DEXTROSE 5% MINI-B 100 ML IV SCH (08:09)
--- NOTE | 2023-05-17 09:40 | Ultrasound Report ---
BILATERAL LOWER EXTREMITY VENOUS DOPPLER HISTORY: History of DVT. phlebitis, cancer, r/o DVT COMPARISON STUDY: None. FINDINGS: The bilateral common femoral and superficial femoral veins are patent. Near occlusive throm bus seen within the right popliteal vein. There is also thrombus extending into a branch of the right popliteal vein which may represent the lesser saphenous. This measures 2.6 cm in length. There is th rombus seen within one of 2 right posterior tibial veins and in the right peroneal veins. The left po pliteal vein is patent. However, there is thrombus within a branch of the left popliteal vein which m ay represent the lesser saphenous vein. This is at the confluence of the popliteal vein and measures 3.8 cm in length. There is nonocclusive thrombus seen within the left peroneal veins. IMPRESSION: Bilateral lower extremity DVT as described above most pronounced on the right. ACT 112: Negative or not required by law. Electronically signed by: Wilder Devlin M.D. 05/17/2023 9:39 AM
[2023-05-17] MEDS: LACTATED RINGER'S 1,000 ML IV ONE ×2 (10:37→14:22)
[2023-05-17 11:26] LABS: INR 1.2 (0.9-1.1); Partial Thromboplastin Ratio 0.9; Partial Thromboplastin Time 24 Seconds (21-31); Prothrombin Time 13.3 Seconds (9.0-12.0)
--- NOTE | 2023-05-17 11:52 | Gastrointestinal Consultation ---
Date of Consultation May 17, 2023 Assessment & Plan (1) Ulcerative colitis: (2) Liver transplant recipient: (3) Primary sclerosing cholangitis: Plan Patient will need ongoing GI & hepatology care when he returns to [place] when acute SBO resolves. We discussed options of whether he wants to transfer care locally, but does strongly feel that due to his medical complexity, he should have the possible liver mets worked up when he returns to keep his care consistent. I agree but did let them know we would be happy to assist if they decide to transfer care. Continue supportive care for SBO. Supervising Physician Co-Signing Physician Notes Agree with YURIY Bryant as above Abd: Soft, NT, ND, +BS Continue current therapy and supportive care Patient follows with Transplant Hepatology in [place] Plan is to have liver biopsy in [place] and surgical followup due to insurance issues. History of Present Illness Reason for Consultation: liver transplant, PSC, UC, SBO, ? liver mets Attending Physician: Matthew Montalvo DO History of Present Illness Patient is a 52 yo male with PMH o f PSC s/p liver transplant in 2016, UC, and lymphoma. 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 He is admitted for a small bowel obstruction which is being managed conservatively at present. Abdominal pain improving and he notes having 2 loose bowel movements today. He has been on chronic Tacrolimus and Azathioprine due to his liver transplant in 2015. He notes he has not ever been on treatment for his UC. He had a colonoscopy in February 2023 that showed high grade dysplasia. Patient has been resistant to the idea of a colectomy, but notes it was recommended to him. A CT scan this admission noted concerned for hepatic mets. Allergies Allergy/AdvReac Type Severity Reaction Status Date / Time ibuprofen Allergy Intermediate Hives Verified 05/16/23 23:23 hydromorphone [From Dilaudid] AdvReac Confusion Verified 05/17/23 05:49 Home Medications Medication Instructions Recorded Confirmed Type azathioprine 50 mg tablet 100 mg PO QPM 05/16/23 05/16/23 History tacrolimus 1 mg capsule, 2 mg PO Q12H 05/16/23 05/16/23 History immediate-release Patient History Medical History Primary sclerosing cholangitis Superficial thrombophlebitis of both legs History of pulmonary embolism History of DVT (deep vein thrombosis) Ulcerative colitis Hodgkins lymphoma Surgical History Liver transplant recipient Social History Smoking Status: Never smoker Hx Alcohol Use: Yes Hx Substance Use: No Preferred Language: Bolivian Communication Ability: Effective Senior Tax Manager Required: No Beliefs That Will Affect Care: None Current Living Situation: Spouse Feels Safe at Home: Yes Assistive Devices: None Review of Systems Constitutional: no fever and no chills Respiratory: no cough Cardiovascular: no chest pain Gastrointestinal: + abdominal pain and + diarrhea/loose st ools Psychiatric: no problem reported Physical Exam Constitutional: well developed Respiratory: normal respiratory effort Cardiovascular: Rate/Rhythm: regular rate Gastrointestinal (Abdomen): Inspection/Auscultation: abdomen normal to inspection and + hypoactive bowel sounds Psychiatric: Orientation: alert and oriented x 3 Results & Data Vital Signs (Past 12 Hours) Vital Signs Temp Pulse Pulse Resp BP BP Pulse Ox 05/17/23 11:26 37.6 C H 137 H 18 122/79 95 05/17/23 07:24 110 H 05/17/23 07:18 37.9 C H 70 18 124/87 92 05/17/23 04:24 108 H 05/17/23 03:29 05/17/23 03:29 37.5 C 125 H 20 122/84 91 05/17/23 03:26 117 H 05/17/23 02:51 05/17/23 02:30 105 H 22 122/86 93 05/17/23 02:13 104 H 05/17/23 02:00 110 H 140/90 96 05/17/23 01:00 108 H 22 106/78 95 05/17/23 00:30 113 H 24 115/78 95 05/17/23 00:00 106 H 133/82 94 O2 Del Method 05/17/23 11:26 Room Air 05/17/23 07:24 05/17/23 07:18 Room Air 05/17/23 04:24 05/17/23 03:29 Room Air 05/17/23 03:29 Room Air 05/17/23 03:26 05/17/23 02:51 Room Air 05/17/23 02:30 Room Air 05/17/23 02:13 05/17/23 02:00 Room Air 05/17/23 01:00 Room Air 05/17/23 00:30 Room Air 05/17/23 00:00 Room Air PG Care Time/CCT Total # of Minutes Spent Total Time Spent with Patient: Total time spent is greater than 50% in coordination of care (as documented) at patient's floor/unit and/or counseling patient: Coding Level of Care Code 23784 IN/OBS CONSULT LVL 4,60M Diagnoses Ulcerative colitis K51.90 Liver transplant recipient Z94.4 Primary sclerosing cholangitis K83.01
[2023-05-17] MEDS: PANTOprazole 40 MG in SYRINGE 0 ML IV SCH (12:07)
[2023-05-17] MEDS: LACTATED RINGER'S 1,000 ML IV SCH (12:07)
[2023-05-17] MEDS: Heparin IV Adult Wt-Based Standard w/ INITIAL Bolus Protocol IV STA (12:59)
[2023-05-17] MEDS: HEPARIN SODIUM/DEXTROSE 25,000 UNITS/500 ML BAG IV SCH (13:00)
[2023-05-17] MEDS: HEPARIN SOD (PORCINE) 1000 UNIT/ML IV ONE (13:35)
--- NOTE | 2023-05-17 15:01 | Oncology Consultation ---
Date of Consultation May 17, 2023 Assessment & Plan (1) DVT (deep venous thrombosis): (2) SBO (small bowel obstruction): (3) Liver transplant recipient: Plan Very pleasant gentleman with history of lymphoma, recurrent provoked VTE, high- grade colonic dysplasia and PSC s/p liver transplant for which he is on chronic immunosuppression -Given history of liver transplant on chronic immunosuppression and history of high-grade colonic dysplasia he is at high risk for malignancy especially GI related. He also has a higher risk of infection. Unclear if liver findings are due to malignancy or other causes such as infection. As such, will need liver biopsy. Would also benefit from colonoscopy in the setting of bowel obstruction to rule out colonic mass. Since he has a history of liver transplant, would recommend obtaining liver biopsy at a tertiary center. Since he is already set up with hepatology at [facility], this can be performed there. I will reach out to his liver transplant team to discuss imaging findings. In the meantime, would also recommend obtaining CT chest to evaluate for pulmonary metastasis. Also obtain CEA -. Regarding bilateral DVTs although suspect this may have been provoked by long distance travel, he has multiple provoking factors for VTE including inflammation(colitis), possible malignancy and so would benefit from long- term/lifelong anticoagulation. Can continue with heparin while in the hospital but can be transitioned to a DOAC on discharge. May consider prophylactic dosing of anticoagulation after about 6 months. Thank you for this consult. Oncology will follow while patient is in the hospital. Please feel free to call if have any further questions History of Present Illness Reason for Consultation: Liver lesions Attending Physician: Matthew Montalvo DO History of Present Illness 52-year-old gentleman with history of DVT/PE, ulcerative colitis, primary sclerosing cholangitis s/p liver transplant in 2016 and reported history of lymphoma. 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 Was diagnosed with superficial right lower extremity bilateral superficial thrombophlebitis recently while on a trip to [facility] for which conservativ e management with NSAIDs was recommended. He however presented to the ER at [facility] with nausea, vomiting, constipation which started 1 to [address] abdomen and pelvis on 05/16/2023 revealed multiple hepatic metastasis, dilated small bowel measuring up to 3.2 cm consistent with small bowel obstruction, severe wall thickening of the terminal ileum extending to the cecum and mild wall thickening of descending colon. He indicates that he has a history of high-grade colon dysplasia for which colectomy was recommended several years ago which he declined.Of note, bilateral lower extremity venous Doppler obtained today revealed bilateral lower extremity DVT and he is currently about to be started on therapeutic unfractionated heparin Allergies Allergy/AdvReac Type Severity Reaction Status Date / Time ibuprofen Allergy Intermediate Hives Verified 05/16/23 23:23 hydromorphone [From Dilaudid] AdvReac Confusion Verified 05/17/23 05:49 Home Medications Medication Instructions Recorded Confirmed Type azathioprine 50 mg tablet 100 mg PO QPM 05/16/23 05/16/23 History tacrolimus 1 mg capsule, 2 mg PO Q12H 05/16/23 05/16/23 History immediate-release Patient History Medical History Primary sclerosing cholangitis Superficial thrombophlebitis of both legs History of pulmonary embolism History of DVT (deep vein thrombosis) Ulcerative colitis Hodgkins lymphoma Surgical History Liver transplant recipient Social History Smoking Status: Never smoker Hx Alcohol Use: Yes Hx Substance Use: No Preferred Language: Citizen Of [place] Communication Ability: Effective Licensing Manager Required: No Beliefs That Will Affect Care: None Current Living Situation: Spouse Feels Safe at Home: Yes Assistive Devices: None Results & Data Vital Signs (Past 12 Hours) Vital Signs Temp Pulse Pulse Resp BP BP Pulse Ox 05/17/23 07:24 110 H 05/17/23 07:18 37.9 C H 70 18 124/87 92 05/17/23 04:24 108 H 05/17/23 03:29 05/17/23 03:29 37.5 C 125 H 20 122/84 91 05/17/23 03:26 117 H 05/17/23 02:51 05/17/23 02:30 105 H 22 122/86 93 05/17/23 02:13 104 H 05/17/23 02:00 110 H 140/90 96 05/17/23 01:00 108 H 22 106/78 95 05/17/23 00:30 113 H 24 115/78 95 05/17/23 00:00 106 H 133/82 94 05/16/23 23:45 103 H 21 137/86 96 05/16/23 22:50 101 H 19 98 05/16/23 22:45 121/79 05/16/23 22:45 98 H 18 98 05/16/23 22:40 101 H 19 98 05/16/23 22:32 134/85 05/16/23 22:32 98 05/16/23 22:20 97 H 18 98 05/16/23 22:18 90 16 85 L 05/16/23 22:15 104 H 25 H 86 L 05/16/23 22:15 129/85 05/16/23 22:10 112 H 45 H 98 05/16/23 22:02 117 H 36 H 97 05/16/23 22:00 135/79 05/16/23 22:00 105 H 30 H 94 05/16/23 21:58 117 H 25 H 135/79 94 05/16/23 21:50 119 H 50 H 97 05/16/23 21:49 128 H 47 H 98 05/16/23 21:49 128 H 05/16/23 21:34 36.7 C 122 H 17 141/95 H 95 O2 Del Method O2 Flow Rate 05/17/23 07:24 05/17/23 07:18 Room Air 05/17/23 04:24 05/17/23 03:29 Room Air 05/17/23 03:29 Room Air 05/17/23 03:26 05/17/23 02:51 Room Air 05/17/23 02:30 Room Air 05/17/23 02:13 05/17/23 02:00 Room Air 05/17/23 01:00 Room Air 05/17/23 00:30 Room Air 05/17/23 00:00 Room Air 05/16/23 23:45 Room Air 05/16/23 22:50 05/16/23 22:45 05/16/23 22:45 05/16/23 22:40 05/16/23 22:32 05/16/23 22:32 05/16/23 22:20 Nasal Cannula 2 05/16/23 22:18 Room Air 05/16/23 22:15 05/16/23 22:15 05/16/23 22:10 05/16/23 22:02 Room Air 05/16/23 22:00 05/16/23 22:00 05/16/23 21:58 Room Air 05/16/23 21:50 05/16/23 21:49 05/16/23 21:49 05/16/23 21:34 Room Air
[2023-05-17] MEDS ORDERED: ACETAMINOPHEN 325 MG TAB PO PRN (15:34)
--- NOTE | 2023-05-17 15:58 | Billing Data ---
Date of Service May 17, 2023 Coding Level of Care Code 39943 SUB INP/OBS CARE
[2023-05-17] MEDS: OPTIRAY 320 125ml IV ONE (17:34)
--- NOTE | 2023-05-17 19:18 | CT Scan Report ---
CT angio chest PE protocol CT DOSE: 495.64 mGy.cm HISTORY: 52 years-old Male with PE. Acute shortness of breath TECHNIQUE: Multiple CTA images of the chest were obtained after the intravenous administration of 119 ml Optiray. Coronal and sagittal MIPS were obtained from the axial data set and were submitted for review. All measurements were obtained according to NASCET criteria. A dose lowering technique was u tilized adhering to the principles of ALARA. COMPARISON: CT abdomen and pelvis FINDINGS: CTA: The heart is normal in size. No pericardial effusion. Unremarkable thoracic aorta. Lobar, segmental a nd subsegmental pulmonary emboli are most pronounced throughout the right lung. No saddle pulmonary e mbolus. Mild straightening of the intraventricular septum. CT CHEST: Unremarkable thyroid. No pathologically enlarged lymph nodes of the chest. Trace pleural effusions wi th dependent bibasilar atelectasis. Pulmonary emphysema. No suspicious pulmonary nodules or masses. S ubpleural 2 cm consolidation within the lingula on image 106 represent atelectasis versus small pulmo nary infarct. Numerous hepatic metastasis redemonstrated. Actual luminal air noted along the left lateral margin of the liver is again noted on image 19 series 4 which is unchanged from yesterday's exam. Persistent s mall bowel obstruction. Postoperative changes of the liver. No acute fracture or destructive bone les ion. IMPRESSION: 1. Right lung predominant pulmonary emboli with findings suggestive of associated right heart strain. 2. Trace pleural effusions with mild bibasilar atelectasis. 3. Hepatic metastasis redemonstrated. 4. Postoperative changes of the liver with extraluminal air noted along the left lateral hepatic salom[place] in, unchanged from yesterday's CT abdomen and pelvis. Correlate with surgical history. 5. Persistent small bowel obstruction. ACT 112: Negative or not required by law. The above report was generated using voice recognition software. It may contain grammatical, syntax o r spelling errors. Electronically signed by: Jin Clark M.D. 05/17/2023 7:16 PM
[2023-05-17 20:22] LABS: ANTI-Xa, UFH(UnfractionatedHep > 1.50 IU/ml (0.3-0.7)
[2023-05-17] MEDS: azaTHIOprine 50 MG TAB PO SCH (21:30)
[2023-05-17 22:26] LABS: ANTI-Xa, UFH(UnfractionatedHep > 1.50 IU/ml (0.3-0.7)
[2023-05-18 01:27] LABS: ANTI-Xa, UFH(UnfractionatedHep 0.82 IU/ml (0.3-0.7)
[2023-05-18 04:13] LABS: Albumin Globulin Ratio 1.4 (0.9-2); Albumin Level 2.8 gm/dl (3.4-5.0); BUN Creatinine Ratio 27.5 (10-20); Calcium 7.3 mg/dl (8.6-10.3); Creatinine Clr Calc Pharmacy 89.8 ml/min; Est GFR (African American) 112.7 ml/min; Est GFR (Non-African American) 97.2 ml/min; Magnesium 1.6 mg/dl (1.7-2.4); Potassium 2.9 mmol/L (3.5-5.1); Total Protein 4.8 gm/dl (6.0-8.3)
[2023-05-18 04:19] LABS: ANTI-Xa, UFH(UnfractionatedHep 0.38 IU/ml (0.3-0.7)
[2023-05-18 04:39] LABS: Basophils # (auto) 0.04 K/uL (0.00-0.20); Basophils % (auto) 0.3 %; Dohle Bodies 1+; Eosinophils # (auto) 0.01 K/uL (0.00-0.50); Eosinophils % (auto) 0.1 %; Hematocrit (blood only) 43.6 % (42.0-52.0); Hemoglobin 15.1 g/dl (14.0-18.0); Immature Granulocytes # (auto) 0.13 K/uL (0.01-0.20); Immature Granulocytes % (auto) 1.1 %; Lymphocytes # (auto) 0.32 K/uL (1.20-3.40); Lymphocytes % (auto) 2.7 %; Mean Corpuscular Hemoglobin 32.6 pg (25.0-34.0); Mean Corpuscular Hgb Conc 34.6 g/dL (32.0-36.0); Mean Corpuscular Volume 94.2 fL (80.0-100.0); Mean Platelet Volume 9.8 fL (9.4-12.4); Monocytes # (auto) 1.41 K/uL (0.11-0.59); Monocytes % (auto) 12.1 %; Neutrophils # (auto) 9.74 K/uL (1.40-6.50); Neutrophils % (auto) 83.7 %; Platelet Count 183 K/uL (130-400); Polychromasia 1+; RDW Coefficient of Variation 14.3 % (11.5-14.5); RDW Standard Deviation 49.9 fL (36.4-46.3); Red Blood Count 4.63 M/uL (4.70-6.10); White Blood Count 11.65 K/ul (4.8-10.8)
[2023-05-18] MEDS: POTASSIUM CHLORIDE CRTAB 20 MEQ TABCR PO ONE (06:29)
[2023-05-18] MEDS: POTASSIUM CHLORIDE / WTR 10 MEQ/100 ML PLCT IV SCH (06:30)
--- NOTE | 2023-05-18 06:44 | Hospitalist Progress Note ---
Date of Service May 18, 2023 Assessment & Plan (1) SBO (small bowel obstruction): (2) Ulcerative colitis: (3) Superficial thrombophlebitis of both legs: (4) Liver transplant recipient: (5) Primary sclerosing cholangitis: (6) History of pulmonary embolism: (7) History of DVT (deep vein thrombosis): Plan Pt is a 52 yo male with a past medical history of ulcerative colitis, liver transplant status on immunosuppressive's, history of DVT and PE, high-grade dysplasia of colon, primary sclerosing cholangitis, Hodgkin's lymphoma, history of PE with COVID-19, history of DVT post liver transplant, recent diagnosis of superficial thrombophlebitis in the left saphenous vein and right calf who presents to the hospital on 05/15 for worsening nausea/vomiting over the last 2 days found to have an SBO. #Small bowel obstruction - CT scan suggestive of small bowel obstruction, no prior hx of SBO - NPO, NSS + KCl 20 mill equivalents at 100 mL/h - Discussed possible need for NG tube - continue Pantoprazole 40 mg IV daily - maybe due to underlying IBD vs mass - GI consulted; pending #Hx DVT s/p liver transplant in 2015 #Hx PE with COVID19 in 2019 #Current hx of superficial thrombophlebitis in b/l lower extremities, recent travel - previously on 6 mo of some sort of anticoagulant, no hypercoag workup done in the past - continue heparin - does have underlying cancer and recent travel as possible reasons for clots - will do b/l venous US; b/l DVT R>L - hematology consulted; pending #Fever in immunosuppressed pt - CT shows potential colitis process - on tacrolimus and azathioprine - pending GI recs - continue Zosyn 4.5 g IV every 8 hours, - blood cx; pending #Hx ulcerative colitis - pending GI recs #Liver metastases - noted on CT on admission - unclear where primary lesion is - would benefit from biopsy, but as pt is from [place] will defer this for now #S/p Liver transplant in 2015 #Primary sclerosing cholangitis - CT on admission shows possible liver mets, has hx of high grade dysplasia on previous colonoscopy - Patient has been resistant to a colectomy, which had been recommended at the [facility] - continue home azathioprine and tacrolimus - mild transaminitis noted - consult GI; pending DVT ppx; heparin in case of need for surg intervention IVF: LR 125 mL/hr since NPO Admission and Anticipated Discharge Date Admission Date: May 17, 2023 Subjective Pt is a 52 yo male with a past medical history of ulcerative colitis, liver transplant status on immunosuppressive's, history of DVT and PE, high-grade dysplasia of colon, primary sclerosing cholangitis, Hodgkin's lymphoma, history of PE with COVID-19, history of DVT post liver transplant, recent diagnosis of superficial thrombophlebitis in the left saphenous vein and right calf who presents to the hospital on 05/15 for worsening nausea/vomiting over the last 2 days found to have an SBO. Today, Review of Systems Review of Systems: Per HPI. Physical Exam Physical Exam: General:Alert and oriented, no acute distress but uncomfortable appearing HEENT: Normocephalic, moist oral mucosa, Cardio: Regular rate and rhythm, no murmur, Resp:Lungs clear to auscultation b/l, no wheezes or rhonchi, GI: Tense and distended, no bowel sounds appreciated Skin: Warm, pink, dry, Results & Data Results & Data Vital Signs (Past 12 Hours) Vital Signs Temp Pulse Pulse Resp BP Pulse Ox O2 Del Method 05/18/23 03:47 36.3 C L 58 L 16 140/73 95 Room Air 05/18/23 01:40 106 H 100/64 05/17/23 23:27 37.3 C 124 H 18 89/54 L 94 Room Air 05/17/23 22:36 120 H 05/17/23 19:36 37.2 C 58 L 16 91/56 L 94 Room Air
[2023-05-18] MEDS: MAGNESIUM SULFATE / D5W 1 GM/100 ML BAG IV ONE (07:44)
[2023-05-18 11:15] LABS: ANTI-Xa, UFH(UnfractionatedHep 0.59 IU/ml (0.3-0.7)
--- NOTE | 2023-05-18 11:45 | Hematology/Oncology Prog Note ---
Date of Service May 18, 2023 Assessment & Plan (1) Pulmonary embolism: (2) Liver lesion: (3) DVT (deep venous thrombosis): (4) Liver transplant recipient: (5) Primary sclerosing cholangitis: Plan -CEA elevated at 88 suggestive of colon malignancy with liver metastasis. He however requires liver biopsy to confirm. Although biopsy can be performed here per discussion with IR, would recommend engaging general surgery to see if patient needs to be transferred to tertiary center given bowel obstruction with possible extraluminal air noted along the left lateral hepatic margin. If patient needs transfer to tertiary center, biopsy can be performed when he is transferred there. -Consider obtaining 2D echocardiogram to evaluate for right heart strain. Admission and Anticipated Discharge Date Admission Date: May 17, 2023 Subjective Feels better today. No nausea or vomiting. CTA chest revealed PE with possible right heart strain. No evidence of lung metastasis on imaging Results & Data Vital Signs (Past 12 Hours) Vital Signs Temp Pulse Pulse Resp BP Pulse Ox O2 Del Method 05/18/23 07:53 Room Air 05/18/23 07:19 100 H 05/18/23 03:47 36.3 C L 58 L 16 140/73 95 Room Air 05/18/23 01:40 106 H 100/64 05/17/23 23:27 37.3 C 124 H 18 89/54 L 94 Room Air 05/17/23 22:36 120 H
--- NOTE | 2023-05-18 14:53 | Discharge Summary ---
Date of Service May 18, 2023 Admission HPI Per Admitting Provider The patient presents to the emergency department with a past medical history including ulcerative colitis, liver transplant status on immunosuppressive's, history of DVT and PE, high-grade dysplasia of colon, primary sclerosing cholangitis, Hodgkin's lymphoma, history of PE with COVID-19, history of DVT post liver transplant, recent diagnosis of superficial thrombophlebitis in the left saphenous vein and right calf. Patient lives in [place], where he recently traveled to [place] where his significant other if and keep children live. He and his significant other had gone to [facility] recently, and he de veloped painful legs, and nausea and vomiting. He went to a emergency department in [place], and was found to have superficial thrombophlebitis in left saphenous and right calf veins. He was told to take Motrin, which he is not allowed to due to his medical conditions. He also had developed nausea and vomiting, which worsened over the next 2 days, and caused him to present to the ED at [facility] for assessment. Admission Exam Per Admitting Provider The patient is awake, alert and oriented 3, well developed and well nourished, normocephalic and atraumatic, lying in bed and in no acute distress. HEENT--PERRL, EOMI, mucous membranes and oropharynx mildly dry. Neck--supple. No JVD. No bruits. Thyroid normal, trachea midline, no adenopathy. Heart--normal S1 and S2. No murmurs, rubs or gallops. Lungs--clear bilaterally, no respiratory distress, no accessory muscle use. Abdomen--decreased bowel sounds. Mildly distended. Nontender Extremities--no cyanosis or clubbing. No edema. Dermatologic--normal skin turgor, normal color, no abnormal lymph nodes, no rash. Neurologic--cranial nerves II through XII grossly intact. Rheumatologic--normal range of motion. Psychiatric--normal affect. Principal Diagnosis Small bowel obstruction in complicated patient, possible perforation Discharge Exam General:Alert and oriented, no acute distress, appears comfortable HEENT: Normocephalic, moist oral mucosa, Cardio: Regular rate and rhythm, no murmur, Resp:Lungs clear to auscultation b/l, no wheezes or rhonchi, GI: Tense and distended, quiet bowel sounds Skin: Warm, pink, dry, Discharge Data Allergies Allergy/AdvReac Type Severity Reaction Status Date / Time ibuprofen Allergy Intermediate Hives Verified 05/16/23 23:23 hydromorphone [From Dilaudid] AdvReac Confusion Verified 05/17/23 05:49 Consultations 05/17/23 00:57 ED Decision to Admit Stat 05/17/23 01:51 Consult Gastroenterology Routine 05/17/23 01:54 Consult Hematology Routine Ordered Studies 05/16/23 21:56 CT abd pelvis IV con only Stat 05/17/23 07:57 US venous doppler LE BI Routine 05/17/23 15:56 CT angio chest PE protocol Routine Hospital Course (1) SBO (small bowel obstruction): (2) Ulcerative colitis: (3) Superficial thrombophlebitis of both legs: (4) Liver transplant recipient: (5) Primary sclerosing cholangitis: (6) History of pulmonary embolism: (7) History of DVT (deep vein thrombosis): Plan Pt is a 52 yo male with a past medical history of ulcerative colitis, liver transplant status on immunosuppressive's, history of DVT and PE, high-grade dysplasia of colon, primary sclerosing cholangitis, Hodgkin's lymphoma, history of PE with COVID-19, history of DVT post liver transplant, recent diagnosis of superficial thrombophlebitis in the left saphenous vein and right calf who presents to the hospital on 05/15 for worsening nausea/vomiting over the last 2 days found to have an SBO. #Small bowel obstruction with possible perforation - CT scan suggestive of small bowel obstruction, no prior hx of SBO - NPO, NSS + KCl 20 mill equivalents at 100 mL/h - Pantoprazole 40 mg IV daily - maybe due to underlying IBD vs colonic mass; hemonc concerned this may be more mass related than underlying IBD - GI consulted; continue supportive care, general surg; if perforated needs higher level of care given complex hx - CTA chest notes "Postoperative changes of the liver with extraluminal air noted along the left lateral hepatic margin" - with CT findings and softer pressures today and complex hx, discussion with gen surg/hemonc suggest transfer to tertiary center would be in this patient's best interests #Hx DVT s/p liver transplant in 2015 #Hx PE with COVID19 in 2019 #Current hx of superficial thrombophlebitis in b/l lower extremities, recent travel - previously on 6 mo of some sort of anticoagulant, no hypercoag workup done in the past - continue heparin - does have underlying cancer and recent travel as possible reasons for clots - will do b/l venous US; b/l DVT R>L, CTA shows R PE with heart strain #Fever in immunosuppressed pt - CT shows potential colitis process - on tacrolimus and azathioprine - continue Zosyn 4.5 g IV every 8 hours, - blood cx; neg at 24 hours today #Hx ulcerative colitis - GI recs; supportive care #Liver metastases - noted on CT on admission - unclear where primary lesion is - would benefit from biopsy, but as pt is from [place] will defer this for now #S/p Liver transplant in 2016 #Primary sclerosing cholangitis - CT on admission shows possible liver mets, has hx of high grade dysplasia on previous colonoscopy - Patient has been resistant to a colectomy, which had been recommended at the [facility] - continue home azathioprine and tacrolimus - mild transaminitis noted DVT ppx; heparin in case of need for surg intervention IVF: LR 125 mL/hr since NPO Total Time Total Time Spent Total Time Spent (In Minutes): <30 Discharge Plan Discharge Items Patient Disposition: Transfer Acute Care Hospital Reason For Visit: ABDOMINAL PAIN Discharge Diagnosis: Small bowel obstruction in complicated patient, possible perforation Activity: As commented below Activity Comment: As tolerated. Non-emergency contact: Primary Care Provider Call non-emergency contact if: you have any medication questions Follow-up/Referrals: PCP,NO [Primary Care Provider] - Diet: Regular [place] Attending Provider Instructions: Pt is a 52 yo male with a past medical history of ulcerative colitis, liver transplant status on immunosuppressive's, history of DVT and PE, high-grade dysplasia of colon, primary sclerosing cholangitis, Hodgkin's lymphoma, history of PE with COVID-19, history of DVT post liver transplant, recent diagnosis of superficial thrombophlebitis in the left saphenous vein and right calf who presents to the hospital on 05/15 for worsening nausea/vomiting over the last 2 days found to have an SBO. #Small bowel obstruction with possible perforation - CT scan suggestive of small bowel obstruction, no prior hx of SBO - NPO, NSS + KCl 20 mill equivalents at 100 mL/h - Pantoprazole 40 mg IV daily - maybe due to underlying IBD vs colonic mass; hemonc concerned this may be more mass related than underlying IBD - GI consulted; continue supportive care, general surg; if perforated needs higher level of care given complex hx - CTA chest notes "Postoperative changes of the liver with extraluminal air noted along the left lateral hepatic margin" - with CT findings and softer pressures today and complex hx, discussion with gen surg/hemonc suggest transfer to tertiary center would be in this patient's best interests #Hx DVT s/p liver transplant in 2016 #Hx PE with COVID19 in 2019 #Current hx of superficial thrombophlebitis in b/l lower extremities, recent travel - previously on 6 mo of some sort of anticoagulant, no hypercoag workup done in the past - continue heparin - does have underlying cancer and recent travel as possible reasons for clots - will do b/l venous US; b/l DVT R>L, CTA shows R PE with heart strain #Fever in immunosuppressed pt - CT shows potential colitis process - on tacrolimus and azathioprine - continue Zosyn 4.5 g IV every 8 hours, - blood cx; neg at 24 hours today #Hx ulcerative colitis - GI recs; supportive care #Liver metastases - noted on CT on admission - unclear where primary lesion is - would benefit from biopsy, but as pt is from [place] will defer this for now #S/p Liver transplant in 2016 #Primary sclerosing cholangitis - CT on admission shows possible liver mets, has hx of high grade dysplasia on previous colonoscopy - Patient has been resistant to a colectomy, which had been recommended at the [facility] - continue home azathioprine and tacrolimus - mild transaminitis noted DVT ppx; heparin in case of need for surg intervention IVF: LR 125 mL/hr since NPO Pending Studies at Discharge: No Stand-Alone Forms: My [facility] Skilled Items Patient informed of condition?: Yes DNR: No Discharge Level of Care: Other Communicable Disease: No Discharge Prognosis: Stable Lines: Peripheral IV Urinary Catheter: No Medications and DC Order Prescriptions: Continued azathioprine 50 mg Tablet 100 mg PO QPM tacrolimus 1 mg Capsule 2 mg PO Q12H Discharge Orders: Discharge Order (Routine); Ordered 05/18/23 Ordered By: Lindsay Reveles Admission Data Admit Date/Time: 05/17/23 01:50 Attending Provider: Matthew Montalvo Admit Provider: Charan Stein Primary Care Provider: PCP,NO Other Providers: Charan Stein; Mora Matthew Jr; Rajwinder Lynch Other Interventions: Discharge Summary Assessment (RN) Last Done: 05/18/23 16:32 Supervising Physician Co-Signing Physician Notes I personally examined the patient and verified all burnett points of history and exam, discussed case, and agree with decision making with Dr Reveles feeling better actually. had liquid bowel movements. At the same time, discussed concern that his small bowel obstruction may either be malignancy or ulcerative colitis, he has the new potential liver mets, and we cannot confirm or refute the chronicity of the free air around his liverwith all of that, and with discussion with general surgery here that he is far too complicated for our team to be able to safely and appropriately handle, [facility]. [facility] noted nad heent nc at mmm breathing unlabored no accessory muscles good effort skin no rashes no pallor or icterus neuro no focal deficits. Abdomen soft mildly distended at worst nontender no guarding rebound or rigidity. Skin without rashes pallor or icterus. CT scan reviewedfree air noted are a few small areas around the margin of the liver, certainly not a large amount of air crescentto clarify, this was not mentioned in the reading of the CT abdomen and pelvis from yesterdayand specifically it was commented "no free air"chest CT done late in the day yesterday, and not available for my review until this morning, showed postoperative changes with extraluminal air noted in the left lateral hepatic margin unchanged from the CT abdomen and pelvis. SBO - concern inflammatory or malignant. Unclear if small bowel obstruction due to UC or small bowel obstruction due to malignancybiopsy/scope would be quite helpfulbeyond the capabilities of this facility. While he does not examine like an acute abdomen, and does not show sepsis/peritonitis, he is on enough immune suppressants that it is possible that he could have a perforation and a slowly burgeoning peritonitis without much of a septic response given his suppressed immune systemthis seems doubtful, but certainly is possibleand the risk of that causing catastrophe is obviously too large to rest on his bedside appearance aloneparticularly without transplant or tertiary surgical backup. This is another reason [facility]. Will also be able to more easily obtain biopsy of his liver lesions. Discussed with patient, transfer to [facility]. DVT/bilateral thrombophlebitis lower extremitiescurrently on heparin drip due to potential need for procedures. Otherwise as above. otherwise as above Resident Activity Tracking Resident Involvement: Resident Care Provided Care Provided: Adult Hospital Medicine
--- NOTE | 2023-05-18 19:01 | Billing Data ---
Date of Service May 18, 2023 Coding Level of Care Code 52119 IN/OBS DISCH 30 MIN/LESS
== END 2023-05-18 16:34 | disposition short-term general hospital (02) | DRG 388 ==
LOC: ED 21:22 → SUATTDRO 05-17 01:50 → 2N 05-17 01:50